=== PATIENT | male | born 1940 | race Caucasian/White ===

== ENCOUNTER 2016-09-06 15:57 | Inpatient (IN) ==
[2016-09-06 17:37] LABS: MANUAL DIFF NEEDED? NO
[2016-09-06 17:41] LABS: BASO% 0.3 % (0.0-0.8); EOS# 0.04 X1000 (0.0-0.7); EOS% 0.5 % (0.0-10.0); HEMATOCRIT 29.7 % (42.0-52.0); HEMOGLOBIN 9.8 g/dL (14.0-18.0); LYMPH# 1.74 X1000 (1.2-3.4); LYMPH% 23.5 % (20.5-51.1); MCH 29.8 PG (27-31); MCV 90.3 FL (81-99); MONO# 0.56 X1000 (0.11-0.59); MONO% 7.6 % (1.7-9.3); MPV 11.5 FL (7.4-10.4); NEUT% 68.1 % (42.2-75.2); PLT 202 X1000 (130-400); RBC 3.29 XMIL (4.7-6.1)
[2016-09-06 17:53] LABS: ALBUMIN 3.9 g/dL (3.5-5.0); CALCIUM 8.8 mg/dL (8.8-10.2); POTASSIUM 5.4 mmol/L (3.5-5.1); TOTAL BILIRUBIN 0.47 mg/dL (0.20-1.00); TOTAL PROTEIN 6.7 g/dL (6.3-8.3)
[2016-09-06 18:13] LABS: URINE SOURCE CLEAN CATCH
--- NOTE | 2016-09-06 18:25 | PROVIDER DOCUMENTATION ---
This chart was entered by Natalya Villagran Scribe, acting as scribe for Zachary Cordoba PA. HPI-Abdominal Pain/GI Problem - General Chief Complaint: Abdominal Pain Stated Complaint: abd pain Time Seen by Provider: 09/06/16 16:24 Source: patient Allergies/Adverse Reactions: Patient Allergies Allergy/AdvReac Type Severity Reaction Status Date / Time Iodinated Contrast Media - Allergy Severe RASH Verified 09/06/16 23:43 Oral and morphine Allergy ITCHING Verified 09/06/16 23:43 Penicillins Allergy RASH Verified 09/06/16 23:43 Home Medications: Home Medication List Medication Instructions Recorded Confirmed Last Taken Type Amiodarone [Cordarone] 100 mg PO QAM 03/01/14 09/06/16 09/05/16 History Aspirin 1 tab PO QAM 03/01/14 09/06/16 09/05/16 History PRAVAstatin [Pravachol] 20 mg PO QHS 03/01/14 09/06/16 09/05/16 History Dicyclomine HCl [Bentyl] 20 mg PO BID 12/22/14 09/06/16 09/05/16 History Metformin [Glucophage] 500 mg PO BID CC 12/06/15 09/06/16 09/05/16 History Warfarin [Coumadin] 2.5 mg PO QHS 12/06/15 09/06/16 09/05/16 History Ondansetron [Zuplenz] 8 mg PO Q8H 09/06/16 09/06/16 09/05/16 History Pantoprazole [Protonix] 40 mg PO DAILY 09/06/16 09/06/16 09/05/16 History Tamsulosin [Flomax] 0.4 mg PO DAILY 09/06/16 09/06/16 09/05/16 History - History of Present Illness-ABD Nature of Presenting Problems: Pt is 75 y/o M presents to the ED with abdominal pain. Pt states pain has been present since yesterday. Pt states N and D. Pt states bright red blood in D. Pt states weight loss and poor appetite. Pt states chills and denies F. Pt states weakness. Abdominal Pain Onset Location: reports: generalized abdomen Pain Radiation: reports: no radiation Quality of Pain: reports: sharp Severity in ED: reports: mild Onset/Duration: reports: 24 hours ago Timing: reports: still present, intermittent Activities at Onset: reports: light activity Exposure to sick contacts?: No Modifying Factors: improves with: nothing Associated Symptoms: reports: cough, diarrhea, fever/chills (chills), loss of appetite, nausea, weakness, other (weight loss). denies: anxiety, arm pain, back/neck pain, chest pain, constipation, diaphoresis, dizziness, EENT symptoms , fatigue, genitourinary problems, headaches, heartburn, joint pain, malaise, muscle aches, sinus congestion/drainage, rash, seizure, shortness of breath, sensory/motor loss, pain with inspiration, swelling/mass in abdomen, syncope, vomiting, trouble walking Last BM: this morning Dark Stools Present?: reports: none noticed Rectal Bleeding: reports: bright red blood on paper, blood mixed with stool Rectal Pain: reports: none Emesis Description: reports: none Bruising or Bleeding Gums?: No Similar Symptoms Previously?: Yes Recently seen or treated by another doctor?: No Review of Systems - Adult - REVIEW OF SYSTEMS - ADULT Constitutional: reports: chills, weight loss. denies: fever Eyes: denies: blurred vision, double vision Ears, Nose, Mouth & Throat: denies: ear pain, nose pain, throat pain Cardiovascular: denies: chest pain, heart murmur, irregular heart rate Respiratory: reports: cough. denies: shortness of breath, wheezing Gastrointestinal: reports: abdominal pain, diarrhea, nausea, poor appetite, rectal bleeding (bright red blood). denies: vomiting Genitourinary: denies: dysuria, hematuria, urinary retention Musculoskeletal: reports: muscle weakness. denies: bone pain, joint pain, neck pain Integumentary: denies: hives, itching, rash Neurological: denies: dizziness/vertigo, headache/migraines, numbness, seizure, syncope Psychiatric: reports: no symptoms reported Endocrine: reports: no symptoms reported Hematologic/Lymphatic: reports: no symptoms reported Allergic/Immunologic: reports: no symptoms reported All Other Systems: Reviewed and Negative Past History - Adult - PAST MEDICAL HISTORY-ADULT Review of Records: reports: Nursing Assessment Review, Medications Reviewed, Social history reviewed & non-contributory. Major Childhood Illnesses: reports: denies history Cardiovascular: reports: A-Fib, CAD, CHF, HTN, heart valve problem, hyperlipidemia, other (aortic valve) Respiratory: reports: asthma, COPD, sleep apnea Gastrointestinal: reports: cancer (colon), colitis, GERD, GI bleed Obstetrical/Gynecological: reports: denies history Genitourinary: reports: kidney disease Musculoskeletal: reports: denies history Neurological: reports: TIA Endocrine/Immune: reports: Diabetes Other Conditions: reports: denies history - PRIOR SURGERIES/PROCEDURES Surgical/Procedure History: reports: CABG, cholecystectomy, hernia repair, other (lumbar surgery; jaw surgery) - IMMUNIZATION STATUS Childhood Immunizations: See Nurse Assessment Flu Vaccine: See Nurse Assessment - FAMILY HISTORY Family History: CAD over 55 yo - SOCIAL HISTORY Smoking: quit greater than 1 year, cigarettes Substance Use: denies Living Situation: family Physical Exam-General - PHYSICAL EXAM-ADULT Initial Vital Signs Reviewed: Yes - CONSTITUTIONAL General Appearance: alert, no apparent distress - EYES Eyes: PERRL/EOMI, pink conjunctivae - HEAD, EARS, NOSE, MOUTH & THROAT HENMT: normocephalic/atraumatic, normal ENT inspection, other (dry mucous membranes) - NECK Neck: normal inspection - RESPIRATORY Respiratory: chest non-tender, lungs clear, normal breath sounds - CARDIOVASCULAR Cardiovascular: normal peripheral pulses, regular rate, rhythm - GASTROINTESTINAL (ABDOMEN) Abdominal Exam: normal bowel sounds, non tender, soft - LYMPHATIC Lymphatic: no adenopathy - MUSCULOSKELETAL Back Exam: normal inspection, no CVA tenderness, no vertebral tenderness Extremity: normal range of motion, non-tender, normal inspection - SKIN Integumentary: normal color, normal turgor - NEUROLOGIC Neurologic: grossly normal - PSYCHIATRIC Psych/Mental Status: normal mood/affect, oriented x 3 Progress - PLAN OF CARE/RESULTS Progress/Plan/Lab Results: Vital Signs - 8 hr 09/06/16 16:25 Temperature 98.2 F Pulse Rate 64 Respiratory Rate 16 Blood Pressure 137/64 O2 Sat by Pulse Oximetry 100 Laboratory Results - last 24 hr 09/06/16 09/06/16 09/06/16 16:50 16:50 18:05 WBC 7.39 RBC 3.29 L Hgb 9.8 L Hct 29.7 L MCV 90.3 MCH 29.8 MCHC 33.0 RDW Std Deviation 14.2 Plt Count 202 MPV 11.5 H Immature Gran % (Auto) 0.0 Neut % (Auto) 68.1 Lymph % (Auto) 23.5 [place] % (Auto) 7.6 Eos % (Auto) 0.5 Baso % (Auto) 0.3 Immature Gran # (Auto) 0.00 Neut # (Auto) 5.03 Lymph # (Auto) 1.74 [place] # (Auto) 0.56 Eos # (Auto) 0.04 Baso # (Auto) 0.02 Sodium 141 Potassium 5.4 H Chloride 104 Carbon Dioxide 20 L Anion Gap 17 BUN 48 H Creatinine 2.5 H Estimated GFR/1.73 m2 25 BUN/Creatinine Ratio 19 Glucose 122 H Calculated Osmolality 295 Calcium 8.8 Total Bilirubin 0.47 AST 21 ALT 15 Alkaline Phosphatase 92 Total Protein 6.7 Albumin 3.9 Globulin 2.8 Albumin/Globulin Ratio 1.4 Urine Source CLEAN CATCH Orders Category Date Time Status CHEST-2 VIEWS [RAD] Stat Exams 09/06/16 16:41 Taken CBC WITH DIFF [HEME] Stat Lab 09/06/16 16:50 Completed COMPREHENSIVE METABOLIC PANEL [CHEM] Stat Lab 09/06/16 16:50 Completed OCCULT BLOOD SCREENING [STOOL] Stat Lab 09/06/16 16:39 Uncollected TYPE & SCREEN [BBK] Stat Lab 09/06/16 16:39 Uncollected UA NIMS W/REFLEX CULT [URINALYSIS] Stat Lab 09/06/16 18:05 Results Result Diagrams: 09/09/16 06:50 09/09/16 06:50 - REASSESSMENT Reassessment #1 Time Reassessed: 18:24 (Pt had a BM in the room- liquid stool with blood. I observed that was bloody. Need a CT scan but pt creatinine is 2.5. ) Reassessment #2 Time Reassessed: 20:06 (Dr. Foster let Dr. Guerrero, hospitalist, know that pt is waiting scan, but will be consulted for admission. Discussed wtih Dr. Foster the hyperkalemia. Suggests not treating that at this time, but ok to start NS on pt. Waiting for CT Scan. ) Reassessment #3 Time Reassessed: 21:55 (Discussed with Dr. Foster. CT scan results are back. Will consult for admission. ) - CT/MRI 1 CT Study: Abdomen, Pelvis Impression: Abnormal (1. Small loculated pleural effusion on the left 2. Multiple distended loops of bowel with air-fluid levels, mainly in the upper abdomen. Worrisome for obstruction 3. Trace fluid layering in the pelvis) - CONSULTS/PCP/HOSPITALIST Notification #1 *Consult/PCP/Hospitalist*: Dr. Bryant, GI Time Discussed: 18:52 (Requested clarification on what scan to order for pt with his sxs but creatinine of 2.5. Recommends CT with oral contrast only, and recommends admission to hospital. ) #2 Consult: Dr. Guerrero, Hospitalist Time Discussed: 22:21 (Dr. Guerrero already saw the pt based on the previous call, he is already putting in orders for this patient. ) Consult Disposition: Admit Departure - Departure Date of Disposition Decision: 09/06/16 Time of Disposition Decision: 22:22 DIAGNOSIS: History of colon cancer GI bleed Qualifiers: GI bleed type/associated pathology: unspecified gastrointestinal hemorrhage type Qualified Code(s): K92.2 - Gastrointestinal hemorrhage, unspecified Bowel obstruction Qualifiers: Intestinal obstruction type: unspecified Qualified Code(s): K56.60 - Unspecified intestinal obstruction Disposition: ADMITTED INPATIENT 09 Certified Medical Emergency: Emergent Condition: Stable - Critical Care Note This patient required my direct & personal management of CC.: No Attestation - Physician/ YASMIN Attestation Patient care was provided by Advanced Practice Provider:: Yes Advanced Practice Provider:: Zachary Cordoba Advanced Practice Provider documentation review:: The Mid-level provider documentation, treatment plan and medical decision making was reviewed by the physician who agrees with all treatment and medical decision making by the MLP. This chart was documented by the indicated scribe, (Natalya Villagran Scribe) and accurately reflects the services I performed and decisions made by , Zachary Cordoba PA, as attested by the provider's signature.
[2016-09-06 18:50] LABS: BILIRUBIN URINE NEGATIVE (NEGATIVE); BLOOD URINE NEGATIVE (NEGATIVE); COLOR YELLOW; GLUCOSE URINE NEGATIVE (NEGATIVE); LEUKOCYTES URINE SMALL (NEGATIVE); NITRITE URINE NEGATIVE (NEGATIVE); PROTEIN URINE 30 mg/dL (NEGATIVE); SP GRAVITY URINE 1.019; TURBIDITY URINE CLEAR (CLEAR); UROBILINOGEN URINE NORMAL (NORMAL)
[2016-09-06 18:52] LABS: URINE MICRO REVIEW NEEDED? YES
[2016-09-06 19:00] LABS: UR EPITHELIAL CELLS <10 /HPF (<10); URINE BACTERIA NEGATIVE /HPF; URINE CULTURE NEEDED? YES; URINE RBC <10 /HPF (<10); URINE WBC <10 /HPF (<10)
[2016-09-06] MEDS ORDERED: NS 1,000 ML IV ONE (20:05)
[2016-09-06] MEDS ORDERED: HUMULIN R IV ONE (21:44)
[2016-09-06] MEDS ORDERED: D50W SYRINGE IV ONE (21:44)
[2016-09-06 22:11] LABS: INR 2.65; PROTIME 29.6 Seconds (9.2-11.7)
[2016-09-06] MEDS: NS 1,000 ML IV SCH (23:58)
[2016-09-06] MEDS ORDERED: ZOFRAN IV PRN (23:58)
[2016-09-07] MEDS ORDERED: MORPHINE IV PRN (05:10)
[2016-09-07] MEDS: PEPCID IV SCH ×2 (05:50→14:43)
--- NOTE | 2016-09-07 06:04 | HISTORY AND PHYSICAL ---
PRIMARY CARE PROVIDER: Dr. Nawaf Kaye. COSMETIC SALES CONSULTANT: Dr. Sanchez Ross. CHIEF COMPLAINT: Abdominal pain, with blood in stool. HISTORY OF PRESENT ILLNESS: This is a 75-year-old male who was last admitted to our service on 02/03/2016 for dark tarry stools. He has a history of colon cancer, with subsequent colectomy by Dr. Mac, I believe roughly 6 years ago. The patient has a porcine aortic valve replacement that he received at [place]. He also had coronary artery disease, with coronary artery bypass grafting, COPD, hypertension, atrial fibrillation with chronic Coumadin anticoagulation. At any rate, yesterday the patient started having cramping abdominal pain. Today, he started having stools with bright red blood that became more and more liquid, and he had more and more cramping in his abdomen. He tried taking Gas-X and antacids, which did not help. He also noted that he has a decreased appetite. Over the last 6 months, he has had weight loss from 234, down to 164 pounds. He had associated symptoms, such as dizziness, weakness, fever, chills , some cough over the last several days, with clear sputum. A CT of the abdomen was obtained, as well as a chest x- ray. The chest x-ray showed cardiomegaly, no infiltration. The CT of the abdomen showed multiple distended loops of bowel mainly in the upper abdomen, which was worrisome for obstruction. The patient will be admitted to the medical floor for further evaluation and treatment of bowel obstruction versus ileus, as well as lower gastrointestinal bleeding. PAST MEDICAL HISTORY: 1. Coronary artery disease, status post CABG. 2. Colon cancer, status post colectomy. 3. Diabetes mellitus type 2. 4. COPD. 5. Hypertension. 6. Hyperlipidemia. 7. Stage 4 chronic kidney disease, followed by Dr. Marquez. PAST SURGICAL HISTORY: 1. Colon resection secondary to colon cancer. 2. CABG. 3. Porcine aortic valve replacement done at [place]. 4. Back and neck surgery. 5. Cataract surgery. 6. Hernia repair. 7. Laparoscopic cholecystectomy SOCIAL HISTORY: Lives at home with his . He is a former smoker. Denies alcohol or illicit drug use or abuse. ALLERGIES: Penicillin, morphine, and IV contrast. HOME MEDICATIONS: The list of home medications has not been reconciled. Order will be placed for nursing to reconcile home medications. The patient does take Coumadin 1.25 mg p.o. at bedtime. It is the only verified home medication, as well as, amiodarone 100 mg p.o. daily, and I believe metoprolol 12.5 mg p.o. b.i.d. REVIEW OF SYSTEMS: A 14-point review of systems conducted with the patient. Pertinent positives listed above in the HPI. All other systems were reviewed and found to be negative. PHYSICAL EXAMINATION: VITAL SIGNS: Temperature 98.2 degrees, pulse 73, respirations 18, blood pressure 154/76, oxygen saturation 100% on room air. GENERAL: A pleasant 75-year-old male, was noted to be pale, lying in the ER stretcher. Answers all questions appropriately. at bedside is very supportive. HEENT: Head is atraumatic, normocephalic. Pupils are equal, round, reactive to light. Extraocular eye movement intact. Sclerae anicteric. Conjunctivae is pale. Oral mucosa is dry. NECK: Supple. No JVD. No thyromegaly. Trachea is midline. CARDIAC: S1-S2 appreciated. No murmurs, gallops, or rubs. Regular rhythm. LUNGS: Decreased bilaterally, but clear to auscultation. No rhonchi, wheezes, or rales. ABDOMEN: Soft, nondistended. Diffusely tender, mostly tender in the epigastric area. Previous scarring for surgical incisions noted. No rebound tenderness. No guarding. Bowel sounds are present, hyperactive. EXTREMITIES: No clubbing, cyanosis, or edema. 2+ pedal pulses. NEUROLOGICAL: Alert and oriented x3. Cranial nerves 2-12 appear to be grossly intact. DIAGNOSTIC DATA: CT of the abdomen showed multiple distended loops of bowel, mainly in the upper abdomen, worrisome for obstruction. Chest x-ray showed cardiomegaly. LABORATORY DATA: WBC 7.39, hemoglobin 9.8, hematocrit 29.7, platelet count 202, 000. PT 29.6, INR 2.65, PTT 43.1. Sodium 141, potassium 5.4, chloride 104, carbon dioxide 20, BUN 48, creatinine 2.5, glucose 122. Urine unremarkable. ASSESSMENT AND PLAN: 1. Lower gastrointestinal bleeding. The patient has noted bright red blood in his stool. His hemoglobin and hematocrit were noted to be low at 9.8 and 29.7. This is around the patient's baseline, but related to his extensive cardiac history. We will go ahead and transfuse 1 unit of packed red blood cells. We will consult Dr. Ross to see the patient in a.m. 2. Probable bowel obstruction per CT scan. Will have patient NPO, except for medications with sips of water. The patient was not noted to be overly distended. He did have mild nausea. We will order Zofran. I will not place an NG tube at this time. Will give gentle fluid hydration, and hope that this resolves with supportive treatment. 3. Atrial fibrillation. Continue amiodarone and beta susana. Apparently, the patient had recent medication changes by Dr. Hatfield. We will consult Dr. Hatfield for help in this matter, as we do not know the correct medications. Will hold his Coumadin at this time, as he is having GI bleeding. His INR is noted to be 2.65. 4. Aortic valve replacement. As noted, Dr. Hatfield will be consulted. We are aware. Further recommendations per patient clinical course. Dictated by JAIRON Hannah for Heidi Barahona MD Seen,examined and discussed case with RAIL[employer]AY STATION MANAGER. cc: JAIRON Hannah MD Manish Arora, MD Stephen A. Branning, MD [facility] STATE HOSPITALBozena
--- NOTE | 2016-09-07 06:09 | EKG Report ---
Test Performed on : 09/07/2016 05:35:44 AM Test Reason : am eval Blood Pressure : / mmHG Vent. Rate : 066 BPM Atrial Rate : 066 BPM P-R Int : 392 ms QRS Dur : 154 ms QT Int : 490 ms P-R-T Axes : 000 073 119 degrees QTc Int : 513 ms Sinus rhythm. with 1st degree AV block. Left bundle branch block Abnormal ECG When compared with ECG of 06-SEP-2016 23:07, (Unconfirmed) Sinus rhythm. has replaced Wide QRS rhythm. Confirmed by Jagdeep VENTURA, Rhys Garcia ([id number]) on 09/07/2016 2:17:11 PM
--- NOTE | 2016-09-07 07:38 | Diag Imaging Result Doc PS360 ---
CHEST-2 VIEWS - 09/06/2016 INDICATION: cough, weight loss, hx cancer TECHNIQUE: COMPARISON: 05/18/2016 FINDINGS: Stable aortic valve replacement. Stable moderate cardiomegaly. Pulmonary vascularity remains normal. Stable small left basilar pleural effusion. Stable loop of colon under the right hemidiaphragm. IMPRESSION: Small left pleural effusion. No change from prior. Electronically signed by Angus Driscoll 09/07/2016 7:35 AM
--- NOTE | 2016-09-07 07:38 | Diag Imaging Result Doc PS360 ---
EXAM: ABDOMEN/PELVIS W/O CONTRAST HISTORY: GI bleed, hx colon cancer, creatinine 2.5 TECHNIQUE: CT urogram without contrast COMMENT: Compared to the previous study of 12/12/2015 there appears slightly less atelectasis in the left base. The pleural effusion which was previously present on the right has resolved. There is still a small effusion on the left. There is gas and fluid throughout much of the distal bowel. By history there has been resection of all or part of the colon. The small bowel is generally less distended proximally and the stomach is not distended. There is a small hiatal hernia. There is a cystic-appearing structure with some adjacent calcifications in the head of the pancreas which is slightly larger than on the previous study at which time it measured less than 2.3 cm, now measuring over 3 cm. There is no evidence of nephrolithiasis or hydronephrosis. There is been cholecystectomy. There is a small amount of ascites in the rectovesical pouch and on the right side of the liver in the paracolic gutter and right subphrenic space. Slight dilatation of the distal abdominal aorta is present with a maximum AP dimension of 2.6 cm. This is not changed significantly since the previous study. There are severe hypertrophic changes in the lumbar spine. IMPRESSION: 1. The absence of contrast limits the sensitivity of the study, however, there does not appear to be a physical obstruction given the fluid and gas in the rectum. Possibility of enteritis cannot be excluded. 2. Cystic lesion in the pancreatic head which has increased in size slightly since 12/12/2015. 3. Minimal ascites. 4. Chronic left pleural effusion. Electronically signed by Bulmaro Moran 09/07/2016 7:36 AM
[2016-09-07 08:34] LABS: MANUAL DIFF NEEDED? NO
[2016-09-07 08:36] LABS: BASO% 0.5 % (0.0-0.8); EOS% 1.7 % (0.0-10.0); HEMATOCRIT 27.7 % (42.0-52.0); HEMOGLOBIN 9.1 g/dL (14.0-18.0); LYMPH# 1.65 X1000 (1.2-3.4); LYMPH% 28.8 % (20.5-51.1); MCH 29.5 PG (27-31); MCHC 32.9 g/dL (33-37); MCV 89.9 FL (81-99); MONO# 0.48 X1000 (0.11-0.59); MONO% 8.4 % (1.7-9.3); MPV 10.5 FL (7.4-10.4); NEUT% 60.6 % (42.2-75.2); PLT 169 X1000 (130-400); RBC 3.08 XMIL (4.7-6.1)
[2016-09-07 09:02] LABS: CALCIUM 7.8 mg/dL (8.8-10.2); MAGNESIUM 1.5 mg/dL (1.5-2.7); POTASSIUM 4.5 mmol/L (3.5-5.1)
[2016-09-07] MEDS: NS 1,000 ML IV SCH (09:16)
[2016-09-07] MEDS: CORDARONE PO SCH (09:33)
[2016-09-07] MEDS: TOPROL XL PO SCH ×2 (09:34→21:34)
[2016-09-07 09:48] LABS: INR 2.46; PROTIME 27.3 Seconds (9.2-11.7)
--- NOTE | 2016-09-07 12:38 | PROGRESS NOTE ---
DATE: 09/07/2016 SUBJECTIVE: This patient states that he is feeling better. The last time that he had a bowel movement was yesterday and he saw blood in it. He denies any nausea, vomiting. No diarrhea. No constipation. No chest pain. No shortness of breath. Dr. Ross has been consulted. I will put this patient on a clear liquid diet. I do believe that this patient should be prepared if he is going for a colonoscopy. He is stable. We will monitor. OBJECTIVE: Vital Signs: Temperature 97.7 degrees, pulse 60, respiratory rate 18, blood pressure 147/65, oxygen saturation 100% on room air. HEENT: Head normocephalic. No trauma. PERRLA. Neck: Supple. No JVD. No masses. Central trachea. Chest: Clear to auscultation. No wheezing. No rales. Abdomen: Soft. There is a midline scar that is old. Nontender to palpation. Extremities: No edema. No clubbing. No cyanosis. Neurological: The patient is alert and oriented x3. No focal neurological deficits. LABORATORY: WBC 5.7, hemoglobin 9.1, hematocrit 27.7, platelet 169,000. PTT 27.3, INR 2.46. Sodium 144, potassium 4.5, chloride 110, BUN 41, creatinine 2.1, glucose 77, calcium 7.8, magnesium 1.5. TSH 1.8. ASSESSMENT AND PLAN: 1. Lower gastrointestinal bleed. This patient has noted bright red blood in his stool. He is on warfarin. Hemoglobin and hematocrit have been stable. He already received 1 unit of PRBC here in the emergency department. Dr. Ross has been consulted. Pending recommendations. 2. Probable bowel obstruction per CT scan. I do not think this patient has an obstruction. He has been passing gas. I will put this patient on a clear liquid diet. His abdomen is soft and it is nondistended. 3. Atrial fibrillation. Continue with amiodarone and beta susana. His INR is therapeutic. In case of having a colonoscopy, probably we can stop the warfarin, give him vitamin K, and put this patient on heparin drip, but I will wait for gastroenterology's recommendations to see if they are going to do that tomorrow. 4. Aortic valve replacement. Dr. Hatfield has been consulted; pending recommendations. 5. History of colon cancer status post colectomy. Aware. I do not think this patient has a bowel obstruction. His abdomen is soft and it is not distended. Positive bowel sounds. 6. Hypertension, stable. Continue with the same management. 7. Hyperlipidemia. As soon as I can I will put this patient back on pravastatin. 8. Type 2 diabetes. Continue with the same management. Blood sugar has been stable. cc: Nick Morel MD
--- NOTE | 2016-09-07 15:20 | CONSULTATION ---
DATE OF CONSULTATION: 09/07/2016 REASON FOR CONSULTATION: Abdominal pain and blood in the stool. HISTORY OF PRESENT ILLNESS: 75-year-old gentleman who has a history of colon cancer long time ago presents with increasing abdominal pain and abdominal distention and cramping and he started having some bloody stools associated with mucus and more recently, the blood has cleared. A CT scan was obtained which was essentially negative other than distended loops of bowel. PAST MEDICAL HISTORY: 1. Coronary artery disease status post CABG. 2. Colon cancer status post colectomy. 3. Diabetes mellitus type 2. 4. COPD. 5. Hypertension. 6. Hyperlipidemia. 7. Stage 4 kidney disease. PAST SURGICAL: Colon resection, CABG porcine aortic valve replacement, back and neck surgery, cataract surgery, hernia repair, lap cholecystectomy. SOCIAL HISTORY: Lives with his at home. He used to smoke, but does not now. Denies alcohol or drugs. DRUG ALLERGIES: Allergic to penicillin, morphine and contrast. HOME MEDICATION: The patient is on Coumadin and amiodarone 100 mg daily and metoprolol 12.5 p.o. b.i.d. REVIEW OF SYSTEMS: Negative other than HPI. PHYSICAL EXAMINATION: Reveals this pleasant gentleman. At the time of examination there is not any distress.Vital Signs: Temp 98 degrees, pulse 73, respirations 18, blood pressure 150/76, O2 saturation 100%. General: A 75-year-old gentleman pale, in no acute distress. HEENT: There is no scleral icterus. Conjunctival pallor present. Neck: Supple. Trachea midline. Heart: Normal first and second heart sounds. Patient has a click. Lungs: Clear. Extremities: No clubbing, cyanosis. There is trace edema. Neurologically: Intact. LABORATORY DATA: White count 7.39, hemoglobin 9.8 and hematocrit 29.7. INR 2.65. He is on Coumadin. Creatinine 2.5. IMPRESSION: 1. Lower gastrointestinal bleed. Rule out enterocolitis. He also has a creatinine of 2.5, hematocrit may be his baseline. 2. Possible small-bowel obstruction unlikely. Patient is having diarrhea. He could have enteral colitis. 3. Atrial fibrillation and aortic valve replacement on Coumadin. 4. Dr. Hatfield is consulted for aortic valve replacement. We will see how he does clinically and I will follow the hematocrit. Consider endoscopy depending on his clinical course. He needs most likely, antibiotic prophylaxis because of the porcine valve and he is also on Coumadin. We will decide that tomorrow. cc: Robert Johnson MD
--- NOTE | 2016-09-07 20:30 | CONSULTATION ---
DATE OF CONSULTATION: 09/07/2016 IMPRESSION: 1. Chest pain, predominantly atypical for myocardial ischemia, likely noncardiac. 2. Upper abdominal discomfort and recent bloody diarrhea. 3. Acute bronchitis. 4. Atherosclerotic coronary artery disease. Patient is status post coronary bypass grafting in 2006. 5. Valvular heart disease. Patient is status post aortic valve replacement with bioprosthesis for aortic stenosis in 2011. 6. Paroxysmal atrial fibrillation. 7. Hypertension. 8. Type 2 diabetes mellitus. 9. Stage 4 chronic kidney disease. 10. Colon cancer. Patient is status post colectomy. RECOMMENDATIONS: 1. Telemetry monitoring. 2. Repeat cardiac enzymes. 3. GI evaluation. 4. Continue amiodarone and beta susana. Hold anticoagulation in light of recent symptoms of GI blood loss. HISTORY: This 75-year-old white male with past history of atherosclerotic coronary disease, previous coronary bypass graft in 2006, aortic valve replacement with bioprosthesis for aortic stenosis in 2011, hypertension, paroxysmal atrial fibrillation, type 2 diabetes mellitus, stage 4 chronic kidney disease and previous colon resection for colon cancer was admitted for further evaluation of recent symptoms of GI blood loss as well as atypical chest discomfort. He is suspected of having a possible bowel obstruction. He relates that for the past 2 weeks, he has had problems with cough and wheezing. A clear sputum production. He was not aware of any fever. He was treated with a course of oral antibiotics for about 10 days. Antibiotic therapy ended about 3 or 4 days ago. Since then, his cough has worsened and reemerged and he has had production of yellow-green sputum. Again, he is still not aware of any fever. He started having pain in the upper abdomen and bilateral costal margins. Discomfort intensified. Today he had bowel movement and had bloody diarrhea. He was subsequently brought to the hospital by ambulance and was admitted for further workup. PAST MEDICAL HISTORY: 1. Atherosclerotic coronary disease with previous coronary bypass grafting in 2006. 2. Aortic stenosis. Patient is status post aortic valve replacement with bioprosthesis in 2011. Bypass graft was patent at that time. 3. Hypertension. 4. Paroxysmal atrial fibrillation suppressed with amiodarone. 5. Type 2 diabetes mellitus. 6. Stage 4 chronic kidney disease. 7. Chronic obstructive pulmonary disease. 8. Hypertension. 9. Hyperlipidemia. PAST SURGICAL HISTORY: Colon resection for colon cancer, coronary bypass grafting, aortic valve replacement with bioprosthesis in 2012, unspecified back surgery, unspecified neck surgery, cataract surgery, hernia repair, and laparoscopic cholecystectomy. ALLERGIES: Allergic or intolerant to penicillin, morphine and intravenous contrast. MEDICATIONS PRIOR TO ADMISSION: As listed. He has been on low-dose amiodarone and anticoagulation with warfarin. He has also been on low-dose metoprolol. He has recently started on amlodipine 5 mg daily because of elevated blood pressure. SOCIAL HISTORY: He lives at home with his . His continues to work in the [employer]. He is a former smoker. Does not use alcohol. FAMILY HISTORY: Negative for premature coronary disease. REVIEW OF SYSTEMS: Pulmonary: Noteworthy for cough productive of yellow-green sputum as well as wheezing. Gastrointestinal: Noteworthy for recent upper abdominal pain as well as bloody diarrhea. Constitutional: Negative for fever. Remainder of review of systems negative/noncontributory with 14 total systems reviewed. PHYSICAL EXAMINATION: General: This is a pleasant, elderly white male, in no distress. Vital signs: Blood pressure 150/75, heart rate 73 and regular. Oxygen saturation 100% on room air. HEENT: Extraocular movements intact. Mucous membranes moist. Neck: Supple without jugular venous distention. There are no carotid bruits. Chest: Clear to auscultation. There are no carotid bruits. Auscultation of chest reveals scattered expiratory wheezes and a few rhonchi. Cardiac: Reveals a regular rate and rhythm without appreciable murmur or gallop. Abdomen: Soft, bowel sounds audible. Extremities: Without edema. Neurologic: Reveals him to be alert and oriented. Memory is intermittently challenged. Speech is fluent. Moves all 4 extremities equally well. Skin: Warm and dry. Psychiatric: Reveals mood to be appropriate. IMAGING STUDIES: Electrocardiogram demonstrates sinus rhythm with 1st degree AV block and left bundle branch block. cc: Michel Hatfield MD
[2016-09-08] MEDS: SODIUM CHLORIDE 0.9% INJ SCH (00:52)
[2016-09-08] MEDS: PEPCID IV SCH ×2 (00:52→11:43)
[2016-09-08 07:01] LABS: MANUAL DIFF NEEDED? NO
[2016-09-08 07:23] LABS: BASO% 0.2 % (0.0-0.8); EOS# 0.15 X1000 (0.0-0.7); EOS% 2.9 % (0.0-10.0); HEMATOCRIT 25.9 % (42.0-52.0); HEMOGLOBIN 8.3 g/dL (14.0-18.0); LYMPH# 1.17 X1000 (1.2-3.4); LYMPH% 22.4 % (20.5-51.1); MCH 29.6 PG (27-31); MCV 92.5 FL (81-99); MONO# 0.56 X1000 (0.11-0.59); MONO% 10.7 % (1.7-9.3); NEUT% 63.8 % (42.2-75.2); PLT 174 X1000 (130-400)
[2016-09-08 07:39] LABS: CALCIUM 7.4 mg/dL (8.8-10.2); POTASSIUM 3.4 mmol/L (3.5-5.1)
[2016-09-08 08:08] LABS: INR 2.57; PROTIME 28.7 Seconds (9.2-11.7)
[2016-09-08] MEDS: TOPROL XL PO SCH ×2 (09:21→22:53)
[2016-09-08] MEDS: NS 1,000 ML IV SCH ×4 (09:21→22:55)
[2016-09-08] MEDS: CORDARONE PO SCH (09:21)
[2016-09-08] MEDS: FLAGYL 500 MG/NS 500 MG/100 ML IVPB IV SCH ×3 (09:22→22:52)
[2016-09-08] MEDS: LEVAQUIN 750 MG/D5W 750 MG/150 ML IVPB IV SCH (12:57)
[2016-09-08] MEDS ORDERED: GOLYTELY PO ONE (14:00)
[2016-09-08] MEDS ORDERED: KLOR-CON PO ONE (14:04)
--- NOTE | 2016-09-08 14:22 | PROGRESS NOTE ---
DATE: 09/08/2016 CARDIOLOGY FOLLOWUP NOTE: SUBJECTIVE: Patient continues with some cough productive of green sputum. He has had some further diarrhea but has not noted passing any blood. He denies chest discomfort. OBJECTIVE: Vital Signs: Blood pressure 162/62, heart rate 59 and regular. There is no significant jugular venous distention. Chest: Auscultation of chest reveals scattered expiratory rhonchi. Cardiac Exam: Reveals a regular rate and rhythm without appreciable murmur or gallop. There is no evidence of peripheral edema. IMPRESSION: 1. Recent atypical chest discomfort coupled with productive cough of green sputum. Suspect acute bronchitis. 2. Recent bloody diarrhea. 3. Atherosclerotic coronary artery disease. History of previous coronary artery bypass grafting. 4. Status post aortic valve replacement with bioprosthesis for aortic stenosis in 2011. 5. Paroxysmal atrial fibrillation. Patient continues in sinus rhythm on low-dose amiodarone. 6. Hypertension. 7. Type 2 diabetes mellitus. 8. Chronic kidney disease stage 4. RECOMMENDATIONS: 1. Continue amiodarone and low-dose beta susana. 2. Hold anticoagulation pending further gastrointestinal evaluation. 3. Treat for respiratory infectious process such as acute bronchitis as you are doing. We will defer to primary team. cc: Michel Hatfield MD
--- NOTE | 2016-09-08 14:56 | PROGRESS NOTE ---
DATE: 09/08/2016 SUBJECTIVE: This patient states that he is feeling better. He had a bowel movement yesterday night and he did not see blood. Vital signs are stable. The hemoglobin dropped from 9.120 to 8.3 and the INR is still subtherapeutic. OBJECTIVE: Vital Signs: Temperature 97.7 degrees, pulse 59, respiratory rate 13, blood pressure 162/62, oxygen saturation 100% on room air. HEENT: Head normocephalic. No trauma. PERRLA. Neck: Supple. No JVD. No masses. Central trachea. Chest: Clear to auscultation. No wheezing. No rales. Abdomen: Soft, nontender, nondistended. No hepatosplenomegaly. Extremities: No edema. No clubbing. No cyanosis. Neurological Examination: The patient is alert and oriented x3. No focal deficits. LABORATORY: WBC 5.2, hemoglobin 8.3, hematocrit 25.9, platelet 174,000. PT 28.7, INR 2.5, sodium 143, potassium 3.4, chloride 110, bicarbonate 20. BUN 25, creatinine 1.5, glucose 84, calcium 7.4. ASSESSMENT AND PLAN: 1. Lower gastrointestinal bleed. Probably this patient has colitis. I put this patient on metronidazole and levofloxacin. This patient feels better. He already received 1 unit of PRBC. Warfarin has been held. The hemoglobin and hematocrit decreased a little bit. We will continue to monitor. 2. Atrial fibrillation. Continue with amiodarone and beta susana. INR is therapeutic, but we stopped the warfarin in light of his gastrointestinal bleed. 3. Aortic valve replacement. Dr. Castillo is following this patient. We will continue to follow his recommendations. 4. History of colon cancer, status post colectomy, aware. 5. Hypertension, stable. Continue with the same management. He has been around 130s and 140s and just one episode of 160. 6. Hyperlipidemia. I will put this patient on pravastatin, which is his home medication. 7. Type 2 diabetes. Continue with the same management. Blood sugar has been stable. cc: Nick Morel MD
[2016-09-08] MEDS: ICAR-C PO SCH ×2 (15:26→22:53)
[2016-09-08] MEDS: CENTRUM SILVER PO SCH (15:26)
--- NOTE | 2016-09-08 16:30 | PROGRESS NOTE ---
DATE: 09/08/2016 SUBJECTIVE: The patient is resting in bed. He complains of diffuse oozing from the previous IV site. He also has bruises over the both upper extremities from Coumadin. He was admitted on 09/06 with rectal bleeding which he describes as bright red blood. His last colonoscopy was done within a year. He has received 1 unit of blood transfusion. Today so far he had no bowel movements and no bleeding. He has a history of atrial fibrillation and aortic valve replacement and is on chronic Coumadin treatment. He denies any fevers, rigors, chills, nausea, vomiting, or vomiting blood. OBJECTIVE: Vital signs: Temperature 97.7, pulse rate of 59, respiratory rate 13 ,blood pressure 162/60, saturating 100% room air. Body weight of 152 pounds 11.2 ounces. General: He is thinly built, lying in bed, in no acute distress. HEENT: Pale conjunctivae. No icterus. Neck: Supple. Abdomen: Soft, nontender, nondistended. Bowel sounds. No guarding or rebound. Extremities: No cyanosis, clubbing. Bilateral upper extremities showing bruising and oozing from a prior IV site. Neurologic: Alert and awake. LABS: His hemoglobin and hematocrit is 8.3, 25.9, white count of 5.2, platelet count 174,000, MCV of 92.5. INR of 2.5, PT of 28.7. Sodium 143, potassium 3.4, chloride 110, bicarb 20, anion gap of 13, BUN of 25, creatinine 1.5, glucose of 84, calcium is 7.4. Urine culture showing yeast. IMPRESSION AND PLAN: 1. Lower GI bleed. Questionable diverticular bleeding versus enterocolitis. Will continue on Levaquin and Flagyl. Will await the results of stool studies. We will watch for any further bleeding and if he bleeds we will repeat hematocrit and type and cross, transfuse hematocrit more than 25%. Schedule for EGD and colonoscopy as patient has anemia requiring blood transfusion. 2. Atrial fibrillation with RVR and aortic valve replacement. Being followed by Cardiology team. We are to closely watch his blood counts and INR levels. Will need to reverse INR <1.5 for EGD and colon tomorrow. 3. History of colon cancer status post colectomy. He has subtotal colectomy and has some chronic issues with constipation and slow small bowel motility. 4. I will continue on low-dose MiraLAX once daily. 5. Type 2 diabetes, hypertension, hyperlipidemia, per the primary care team. 6. Gastrointestinal prophylaxis with IV Pepcid twice daily. 7. He will continue on clear liquid diet for now. 8. Further recommendations to follow.Called and discussed with . cc: MD Nick Méndez MD Stephen A. Branning, MD MTDD
[2016-09-08] MEDS ORDERED: VITAMIN K 10 MG in NS 50 ML IV ONE (17:30)
[2016-09-08] MEDS: PRAVACHOL PO SCH (22:53)
[2016-09-09] MEDS: PEPCID IV SCH ×3 (00:37→23:48)
[2016-09-09] MEDS: SODIUM CHLORIDE 0.9% INJ SCH ×2 (00:38→23:48)
[2016-09-09] MEDS: NS 1,000 ML IV SCH ×2 (04:42→23:49)
[2016-09-09] MEDS: FLAGYL 500 MG/NS 500 MG/100 ML IVPB IV SCH ×4 (04:45→20:34)
[2016-09-09 07:17] LABS: MANUAL DIFF NEEDED? NO
[2016-09-09 07:22] LABS: BASO% 0.3 % (0.0-0.8); EOS# 0.11 X1000 (0.0-0.7); EOS% 1.9 % (0.0-10.0); HEMATOCRIT 29.2 % (42.0-52.0); HEMOGLOBIN 9.6 g/dL (14.0-18.0); LYMPH# 1.26 X1000 (1.2-3.4); LYMPH% 21.5 % (20.5-51.1); MCH 29.4 PG (27-31); MCHC 32.9 g/dL (33-37); MCV 89.6 FL (81-99); MONO% 10.2 % (1.7-9.3); MPV 10.4 FL (7.4-10.4); NEUT% 66.1 % (42.2-75.2); PLT 190 X1000 (130-400); RBC 3.26 XMIL (4.7-6.1)
[2016-09-09 07:32] LABS: POTASSIUM 3.5 mmol/L (3.5-5.1)
[2016-09-09 07:34] LABS: INR 1.59; PROTIME 17.2 Seconds (9.2-11.7)
[2016-09-09] MEDS ORDERED: DIPRIVAN 1% ONE ×2 (09:29→10:09)
[2016-09-09] MEDS ORDERED: ROBINUL ONE (09:30)
[2016-09-09] MEDS ORDERED: XYLOCAINE-MPF 2% ONE (09:30)
[2016-09-09] MEDS ORDERED: FENTANYL ONE (09:30)
[2016-09-09] MEDS ORDERED: EPINEPHRINE SYRINGE ONE (10:10)
--- NOTE | 2016-09-09 12:57 | OPERATIVE NOTE ---
PROCEDURE DATE: 09/09/2016 ATTENDING PHYSICIAN: Nick Morel MD PRIMARY CARE DOCTOR: Nawaf Kaye MD TITLE OF PROCEDURE: 1. Esophagogastroduodenoscopy with hemostasis. 2. Colonoscopy with snare polypectomy of rectal polyp and decompression of small bowel. PREOPERATIVE DIAGNOSES: 1. Rectal bleeding. Admitted with anemia. Required 1 unit of blood transfusion. 2. History of atrial fibrillation, on Coumadin. 3. History of aortic valve replacement, on Coumadin. 4. History of diffuse bruising and bleeding from skin in the upper extremities. 5. Required 1 unit of blood transfusion. 6. History of colon cancer status post subtotal colectomy many years ago by Dr. Mac, complicated with ?small bowel inertia and causing small bowel ileus (chronically dilated small bowel). 7. Intermittent abdominal pain and distention is likely because of small bowel ileus. 8. Reflux disease. POSTOPERATIVE DIAGNOSES: 1. Normal esophagus entirely. 2. Z-line was at 45 cm. 3. Evidence of hiatal hernia, sliding type, 4-5 cm. 4. Erosive gastritis in stomach and body, antrum is normal, fundus, cardia, incisura other than hiatal hernia. 5. Erosive duodenitis, duodenal bulb. 6. 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 It was very hard to get to that spot. We put epinephrine 2 mL in 2 different quadrants, but we could not find a good site to burn it with black wire. 7. Distended small bowel up to 110 cm from the anus. This was filled with air and fluid. This was likely because of small bowel ileus from prior colon surgery? nerve injury or something like that or scar tissue. This was decompressed. 8. Polyp found in the rectum 15 cm which was 1 cm to 1.2 cm. This was removed with snare cautery polypectomy completely. Internal hemorrhoid. ESTIMATED BLOOD LOSS: None. COMPLICATIONS: None. ANESTHESIA: Monitored anesthesia care. SPECIMENS: Rectal polyp sent to Pathology. OPERATION IN DETAIL: After informed consent, the patient explained the risks, benefits, indications, alternatives, the patient was prepared for EGD and colonoscopy. The patient was brought to the OR. He was turned to the left lateral position and a bite block was placed in patient's mouth. After adequate monitored anesthesia care, upper endoscope was introduced through the oral vestibule, and advanced all the way to the 3rd portion of duodenum. The esophagus was normal throughout entire length. Z-line was at 45 cm. There was evidence of sliding hiatal hernia 4-5 cm. No evidence of any ulcers or erosions. The stomach showed evidence of erythema, erosions, and mild erosive gastritis. Hiatal hernia was normal. The duodenitis was noted duodenal bulb with erosions, erythema, friability. The third portion of duodenum showed evidence of AVM measuring 5-8 mm at about 9 o'clock position. This was hiding behind a fold. We were unable to put epinephrine successfully. We were not able to find a good angle to burn it with a heater probe. I think he will benefit from Argon plasma coagulation at [facility] with a site probe in order to have effective hemostasis. It was not bleeding before or after putting epinephrine. Air was aspirated, the scope withdrawn. The patient was then turned around. Rectal examination was performed and found to be normal with no masses felt. The colonoscope was introduced through the anal orifice and advanced to 100 cm from the anal verge. We saw the anastomosis at about 20 cm from previous subtotal colectomy. There was evidence of a polyp in the rectum at 15 cm. This was 1-1.2 cm. This was removed using snare cautery polypectomy. There was evidence of internal hemorrhoids, grade 2 on retroflexion. The small intestine past the anastomosis was diffusely distended, filled with air and fluid from the recent GoLYTELY. We went up to 110 cm. We suctioned out and decompressed his abdomen and it became pretty soft after the procedure and the air was aspirated and scope was withdrawn. The patient tolerated the procedure well and is currently monitored in the OR in stable condition. I discussed the findings with the patient and his and all questions answered. After waking up, the patient abdomen felt soft and he was feeling better. RECOMMENDATIONS: 1. The patient will be on Prilosec 40 mg daily for next 3 months and then weaned down to Zantac 150 mg twice daily. 2. Patient will be on Carafate 1 g every 6 hours for 4 weeks. 3. 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 4. The patient will follow gastroesophageal reflux life changes and avoid excessive tea, coffee, soda, tomatoes, onions, spicy foods and take small frequent meals. 5. Patient will avoid any nonsteroidal antiinflammatory drugs. Once we start him on Coumadin, we will try to achieve the INR to the lowest limit of therapeutic range in order to avoid GI bleeding. 6. The patient will be on a full liquid diet for 3-4 days and soft diet 3-4 days to avoid any delayed bleeding from the polypectomy site. 7. We will check his CBC in the morning. 8. The patient will benefit from Reglan. We will give him a trial of 5 mg p.o. q.8 hours and hold for side effects like tardive dyskinesia. 9. We will give him Iron C b.i.d. and multivitamin once daily. 10. Further recommendations pending hospital course. cc: MD Nawaf Méndez MD Alexis R. Penot, MD Omar J. Sosa-Chirinos, MD MTDD
--- NOTE | 2016-09-09 14:49 | PROGRESS NOTE ---
DATE: 09/09/2016 SUBJECTIVE: This patient had today a colonoscopy and also an EGD, at this moment he is feeling much better. He has no abdominal complaint, Gastroenterology is following this patient closely. We will monitor. OBJECTIVE: Vital Signs: Temperature 97.9 degrees, pulse 57, respiratory rate 20, blood pressure 167/76, O2 saturation 100% on room air. HEENT: Head, normocephalic. No trauma. PERRLA. Neck: Supple. No JVD. No masses. Central trachea. Chest: Clear to auscultation. No wheezing. No rales. Abdomen: Soft, mild tenderness to palpation at the level of the periumbilical area, nondistended. Extremities: No edema. No clubbing. No cyanosis. Multiple hematoma likely secondary to IV lines. Neurological Examination: The patient is sleepy but arousable. Oriented x3. No focal deficits. LABORATORY: WBC 5.8, hemoglobin 9.6, hematocrit 29.2, platelets 190,000, PT 17.2, INR 1.59. Sodium 146, potassium 3.5, chloride 108, bicarbonate 25, BUN 17, creatinine 1.6, glucose 79, calcium 8. ASSESSMENT AND PLAN: 1. Lower gastrointestinal bleed. This patient just had an upper and lower endoscopy that showed evidence of hiatal hernia, a sliding type 4-5 cm, erosive gastritis in the stomach and body. Erosive duodenitis. Arteriovenous malformation noted measuring between 5-8 mm in the 3rd portion of the duodenum. Distended small bowel up to 110 cm from the anus, polyp found in the rectum at 15 cm which was 1 cm to 1.2 cm. This was removed with snare cautery polypectomy completely. Internal hemorrhoid. 2. Atrial fibrillation. Continue with amiodarone and beta susana, we used FFP and vitamin K yesterday to decrease the INR, but today we will restart is warfarin, I will restart this patient with a low dose of warfarin to try to reach an INR of 2, to avoid more serious bleeding complication. 3. History of colon cancer status post colectomy. Aware. 4. Hypertension. Stable. Continue with the same management. 5. Hyperlipidemia. Continue with the same management. 6. Type 2 diabetes. Continue with the same treatment. cc: Nick Morel MD
[2016-09-09] MEDS: CORDARONE PO SCH (14:53)
[2016-09-09] MEDS: MIRALAX PO SCH (14:53)
[2016-09-09] MEDS: TOPROL XL PO SCH ×2 (14:54→20:34)
[2016-09-09] MEDS: CENTRUM SILVER PO SCH (14:54)
[2016-09-09] MEDS: ICAR-C PO SCH ×2 (14:54→20:35)
[2016-09-09] MEDS: LEVAQUIN 750 MG/D5W 750 MG/150 ML IVPB IV SCH (16:15)
--- NOTE | 2016-09-09 17:03 | PROGRESS NOTE ---
DATE: 09/09/2016 SUBJECTIVE: Patient relates feeling much better. He denies any chest discomfort or dyspnea on room air lying flat. He still has some cough, but this is improved. OBJECTIVE: Vital Signs: Blood pressure 167/76, heart rate 57, oxygen saturation 100% on room air. Neck: There is no significant jugular venous distention. Chest: Clear to auscultation. Cardiac: Reveals a regular rate and rhythm without appreciable murmur or gallop. There is no evidence of peripheral edema. IMPRESSION: 1. Recent acute bronchitis, improving. 2. Recent lower gastrointestinal bleed. 3. Atherosclerotic coronary disease. 4. Previous coronary bypass grafting. 5. Status post aortic valve replacement for aortic stenosis in 2011. 6. Paroxysmal atrial fibrillation. 7. Hypertension. 8. Type 2 diabetes mellitus. 9. Chronic kidney disease stage 4. RECOMMENDATIONS: 1. Continue amiodarone and low-dose beta susana. 2. Agree with resuming anticoagulation once gastrointestinal situation permits. 3. Continue to manage paroxysmal atrial fibrillation with amiodarone, beta susana and long-term anticoagulation. 4. We will see further on an as needed basis. cc: Michel Hatfield MD
[2016-09-09] MEDS: REGLAN PO SCH ×2 (19:21→20:35)
[2016-09-09] MEDS: CARAFATE PO SCH ×2 (19:21→20:34)
[2016-09-09] MEDS: PRAVACHOL PO SCH (20:35)
[2016-09-09] MEDS ORDERED: COUMADIN PO SCH (21:00)
[2016-09-10] MEDS: FLAGYL 500 MG/NS 500 MG/100 ML IVPB IV SCH ×2 (05:15→09:33)
[2016-09-10] MEDS: REGLAN PO SCH ×2 (05:15→11:58)
[2016-09-10] MEDS: CARAFATE PO SCH ×2 (05:16→09:31)
[2016-09-10 07:41] LABS: MANUAL DIFF NEEDED? NO
[2016-09-10 07:45] LABS: BASO% 0.5 % (0.0-0.8); EOS# 0.11 X1000 (0.0-0.7); EOS% 1.9 % (0.0-10.0); HEMATOCRIT 27.6 % (42.0-52.0); LYMPH# 1.44 X1000 (1.2-3.4); LYMPH% 25.5 % (20.5-51.1); MCH 29.2 PG (27-31); MCHC 32.6 g/dL (33-37); MCV 89.6 FL (81-99); MONO# 0.66 X1000 (0.11-0.59); MONO% 11.7 % (1.7-9.3); MPV 9.9 FL (7.4-10.4); NEUT% 60.4 % (42.2-75.2); PLT 168 X1000 (130-400); RBC 3.08 XMIL (4.7-6.1)
[2016-09-10] MEDS: DILAUDID IV PRN ×3 (07:45→17:41)
[2016-09-10 07:57] VITALS: BP 149/66
[2016-09-10 08:03] LABS: INR 1.2; PROTIME 12.7 Seconds (9.2-11.7)
[2016-09-10 08:16] LABS: CALCIUM 7.4 mg/dL (8.8-10.2); POTASSIUM 3.3 mmol/L (3.5-5.1)
[2016-09-10] MEDS: MIRALAX PO SCH (09:31)
[2016-09-10] MEDS: TOPROL XL PO SCH (09:31)
[2016-09-10] MEDS: CENTRUM SILVER PO SCH (09:31)
[2016-09-10] MEDS: CORDARONE PO SCH (09:31)
[2016-09-10] MEDS: ICAR-C PO SCH (09:32)
[2016-09-10] MEDS: NS 1,000 ML IV SCH (11:52)
[2016-09-10] MEDS: LEVAQUIN 750 MG/D5W 750 MG/150 ML IVPB IV SCH (11:57)
[2016-09-10] MEDS: PEPCID IV SCH (11:58)
--- NOTE | 2016-09-11 14:32 | DISCHARGE SUMMARY ---
ADMISSION DATE: 09/06/2016 DISCHARGE DATE: 09/10/2016 ADMISSION DIAGNOSES: 1. Lower GI bleed. 2. Possible bowel obstruction. 3. Atrial fibrillation number. 4. History of aortic valve replacement. DISCHARGE DIAGNOSES: 1. Lower GI bleed. 2. Atrial fibrillation. 3. History of colon cancer. 4. Hypertension. 5. Hyperlipidemia. 6. Type 2 diabetes. CONSULTATIONS: Dr. Johnson and Dr. Hatfield. DIAGNOSTIC PROCEDURES AND FINDINGS: Chest x-ray done on 09/06/2016 shows small left pleural effusion. Abdomen and pelvis CT done on 09/06/2016 shows possibility of enteritis cannot be excluded, cystic lesion in the pancreatic head which has increased slightly in size since 12/12/2015, minimal ascites, chronic left pleural effusion. Colonoscopy done on 09/09/2016 shows erosive gastritis, hiatal hernia, erosive duodenitis, AVM noted measuring about 5-8 mm in the 3rd portion of the duodenum. Distended small bowel up to 110 cm from the anus, polyp in the rectum. HOSPITAL COURSE: This is a 75-year-old male with a history of gastrointestinal bleeding and colon cancer who came to our facility with bright red blood per stool, diarrhea and cramping in the abdomen that started that 2 days prior to admission. He became dizzy with weakness, fever and chills and came to the ER. In the ER he had abdomen and pelvis CT done which showed questionable bowel obstruction but could not rule out enteritis. He was admitted to the floor. We consulted Dr. Johnson. He also has a history of atrial fibrillation and is on Coumadin which we stopped and consulted Cardiology for further recommendations. Ultimately, the patient had an endoscopy on 09/09/2016 which did show fairly severe erosive gastritis and duodenitis. There was also an AVM which was very difficult to be cauterized by GI. They recommended he go to [place] for argon plasma laser therapy. Otherwise with antibiotics the patient's condition improved and he is feeling better. His cardiac status was stable throughout his entire stay and he is now stable for discharge home. MEDICATIONS: Amiodarone 100 mg daily. Aspirin 81 mg daily, do not resume until 1 week after discharge. Bentyl 20 mg b.i.d. Icar C one b.i.d. Metformin 500 mg b.i.d. Reglan 5 mg p.o. q.8. Toprol-XL 12.5 mg b.i.d. Multivitamin 1 daily. Zuplenz 8 mg p.o. every 8 hours. Protonix 40 mg daily. MiraLAX 17 g daily. Pravachol 20 mg p.o. at bedtime. Carafate 1 g p.o. q.6. Flomax 0.4 mg p.o. daily. Coumadin 2 mg p.o. at bedtime. DISCHARGE LABS: WBC 5.65, hemoglobin 9, hematocrit 27.6, platelet count 168,000. INR 1.2. Sodium 145, potassium 3.3, chloride 108, CO2 22, anion gap 15, BUN 12, creatinine 1.4, glucose 7.4. DISCHARGE DIET: Resume diabetic diet as tolerated. DISCHARGE ACTIVITY: Resume activity as tolerated. DISPOSITION AND DISCHARGE INSTRUCTIONS: Patient is discharged home to self-care. He is to follow up with Dr. Kaye, his PCP within a month and Dr. Johnson as directed. He is to return to the ER or call 911 for any worsening complaints, concerns. All questions have been answered. Discharge time greater than 35 minutes. Dictated by JAIRON Kelley for Nick Morel MD cc: JAIRON Kelley MD Stephen A. Branning, MD Amit Arora, MD Babu Kantamneni, MD William D. Denney, MD
== END 2016-09-10 18:18 | disposition home or self-care (01) ==
LOC: ED 15:57 → EDIPHOLD 23:55 → SUATTDRO 23:55 → 3N 09-07 15:46
PROVIDERS: ATTEND Internal Medicine

== ENCOUNTER 2016-10-25 16:06 | Inpatient (IN) ==
[2016-10-25 16:51] LABS: MANUAL DIFF NEEDED? NO
--- NOTE | 2016-10-25 17:13 | PROVIDER DOCUMENTATION ---
This chart was entered by Annika Dolan Scribe, acting as scribe for Tyler Ivan MD. HPI-General Adult - General Chief Complaint: Abnormal Lab[s] Stated Complaint: ABNORMAL LAB{S} Time Seen by Provider: 10/25/16 16:47 Source: patient Allergies/Adverse Reactions: Patient Allergies Allergy/AdvReac Type Severity Reaction Status Date / Time Iodinated Contrast- Oral and Allergy Severe RASH Verified 09/06/16 23:43 IV Dye morphine Allergy ITCHING Verified 09/06/16 23:43 Penicillins Allergy RASH Verified 09/06/16 23:43 Home Medications: Home Medication List Medication Instructions Recorded Confirmed Last Taken Type Amiodarone [Cordarone] 100 mg PO QAM 03/01/14 09/06/16 09/05/16 History PRAVAstatin [Pravachol] 20 mg PO QHS 03/01/14 09/06/16 09/05/16 History Dicyclomine HCl [Bentyl] 20 mg PO BID 12/22/14 09/06/16 09/05/16 History Metformin [Glucophage] 500 mg PO BID CC 12/06/15 09/06/16 09/05/16 History Ondansetron [Zuplenz] 8 mg PO Q8H 09/06/16 09/06/16 09/05/16 History Pantoprazole [Protonix] 40 mg PO DAILY 09/06/16 09/06/16 09/05/16 History Tamsulosin [Flomax] 0.4 mg PO DAILY 09/06/16 09/06/16 09/05/16 History Amiodarone [Cordarone] 100 mg PO DAILY tablet 09/10/16 Unknown Rx Aspirin 1 tab PO QAM #0 09/10/16 09/06/16 09/05/16 Rx Iron Carbonyl/Ascorbic Acid 1 each PO BID #100 tablet 09/10/16 Unknown Rx [Icar-C] Metoclopramide [Reglan] 5 mg PO Q8H #60 tablet 09/10/16 Unknown Rx Metoprolol Succinate E.r. [Toprol 12.5 mg PO BID #120 tablet 09/10/16 Unknown Rx Xl] Multivitamins/Minerals [Centrum 1 each PO DAILY tablet 09/10/16 Unknown Rx Silver] Polyethylene Glycol 3350 [Miralax] 17 gm PO DAILY #30 powder, packet 09/10/16 Unknown Rx Sucralfate [Carafate] 1 gm PO Q6H #120 tablet 09/10/16 Unknown Rx Warfarin [Coumadin] 2 mg PO QHS #120 tablet 09/10/16 Unknown Rx - History of Present Illness -Gen Adult Nature of Presenting Problems: 75 year old M presents to the ED with a cc of low hemaglobin. PT was sent over from his PCP. PT was seen over 1 month ago in [facility] and admitted. PT had a colonoscopy and EGD. PT has an appointment at [facility] on 11/10 with the GI doctor. Pt had labs drawn Tuesday and was called today and told to come to the ED. Location of Pain/Injury: reports: none Pain Radiation: reports: no radiation Quality of Pain: reports: none Severity: reports: mild Onset/Duration: reports: 2 days ago Timing: reports: still present Modifying Factors: improves with: nothing Similar Symptoms Previously?: No Recently seen or treated by another doctor?: No Review of Systems - Adult - REVIEW OF SYSTEMS - ADULT Constitutional: denies: chills, fever Eyes: reports: no symptoms reported Ears, Nose, Mouth & Throat: reports: no symptoms reported Cardiovascular: denies: chest pain, palpitations Respiratory: denies: cough, shortness of breath Gastrointestinal: denies: nausea, vomiting Genitourinary: denies: dysuria, hematuria Musculoskeletal: denies: bone pain, muscle aches, muscle weakness Integumentary: denies: skin sores/ulcer, skin thickening Neurological: reports: no symptoms reported Psychiatric: reports: no symptoms reported Endocrine: reports: no symptoms reported Hematologic/Lymphatic: reports: no symptoms reported Allergic/Immunologic: reports: no symptoms reported All Other Systems: Reviewed and Negative Past History - Adult - PAST MEDICAL HISTORY-ADULT Review of Records: reports: Nursing Assessment Review, Medications Reviewed Major Childhood Illnesses: reports: denies history Cardiovascular: reports: A-Fib, CAD, CHF, HTN, heart valve problem, hyperlipidemia, other (aortic valve) Respiratory: reports: asthma, COPD, sleep apnea Gastrointestinal: reports: cancer (colon), colitis, GERD, GI bleed Obstetrical/Gynecological: reports: denies history Genitourinary: reports: kidney disease Musculoskeletal: reports: denies history Neurological: reports: TIA Endocrine/Immune: reports: Diabetes Other Conditions: reports: denies history - PRIOR SURGERIES/PROCEDURES Surgical/Procedure History: reports: CABG, cholecystectomy, hernia repair, other (lumbar surgery; jaw surgery) - IMMUNIZATION STATUS Childhood Immunizations: See Nurse Assessment Flu Vaccine: See Nurse Assessment - FAMILY HISTORY Family History: CAD over 55 yo - SOCIAL HISTORY Smoking: quit greater than 1 year Substance Use: none/never Alcohol Use Frequency: never Physical Exam-General - PHYSICAL EXAM-ADULT Initial Vital Signs Reviewed: Yes - CONSTITUTIONAL General Appearance: appears well, alert, no apparent distress - EYES Eyes: pale conjunctivae - RESPIRATORY Respiratory: chest non-tender, lungs clear, normal breath sounds - CARDIOVASCULAR Cardiovascular: normal peripheral pulses, regular rate, rhythm, no edema - GASTROINTESTINAL (ABDOMEN) Abdominal Exam: normal bowel sounds, non tender, soft - SKIN Integumentary: normal color, normal turgor, warm/dry - PSYCHIATRIC Psych/Mental Status: normal mood/affect, normal thought content, normal thought process, oriented x 3 Progress - PLAN OF CARE/RESULTS Progress/Plan/Lab Results: Vital Signs - 8 hr 10/25/16 16:10 Temperature 98 F Pulse Rate 73 Respiratory Rate 18 Blood Pressure 120/64 O2 Sat by Pulse Oximetry 99 Orders Category Date Time Status CBC WITH DIFF [HEME] Stat Lab 10/25/16 16:30 Ordered COMPREHENSIVE METABOLIC PANEL [CHEM] Stat Lab 10/25/16 16:30 Ordered PROTIME WITH INR PL [COAG] Stat Lab 10/25/16 16:30 Ordered Result Diagrams: 10/25/16 16:40 10/25/16 16:40 - CONSULTS/PCP/HOSPITALIST Notification #1 *Consult/PCP/Hospitalist*: Dr. Farrell Time Discussed: 17:55 Consult Disposition: Will see in ED, Admit Departure - Departure Date of Disposition Decision: 10/25/16 Time of Disposition Decision: 17:54 DIAGNOSIS: Anemia, Lower GI bleed Disposition: ADMITTED INPATIENT 09 Certified Medical Emergency: Emergent Condition: Stable Referrals and Follow-Ups: Nawaf Kaye MD [Primary Care Provider] - - Critical Care Note This patient required my direct & personal management of CC.: No Attestation - Physician/ YASMIN Attestation Patient care was provided by Advanced Practice Provider:: No The physician spent face to face time with patient:: Yes Advanced Practice Provider documentation review:: Supervising physician onsite and consulted in the evaluation and care of this patient. The physician did have a face to face encounter with the patient. This chart was documented by the indicated scribe, (Annika Dolan Scribe) and accurately reflects the services I performed and decisions made by me, Tyler Ivan MD, as attested by the provider's signature.
[2016-10-25 17:14] LABS: BASO% 0.7 % (0.0-0.8); EOS# 0.13 X1000 (0.0-0.7); EOS% 2.2 % (0.0-10.0); HEMATOCRIT 23.3 % (42.0-52.0); HEMOGLOBIN 7.4 g/dL (14.0-18.0); IMM GRAN# 0.02 X1000 (0.0-0.04); IMM GRAN% 0.3 % (0.0-0.5); INR 2.98 (0.86-1.15); LYMPH# 1.37 X1000 (1.2-3.4); LYMPH% 23.1 % (20.5-51.1); MCH 28.6 PG (27-31); MCHC 31.8 g/dL (33-37); MONO# 0.45 X1000 (0.11-0.59); MONO% 7.6 % (1.7-9.3); MPV 9.5 FL (7.4-10.4); NEUT% 66.1 % (42.2-75.2); PLT 323 X1000 (130-400); PROTIME 33.3 Seconds (12.1-15.5); RBC 2.59 XMIL (4.7-6.1)
[2016-10-25 17:19] LABS: ALBUMIN 3.8 g/dL (3.5-5.0); CALCIUM 8.7 mg/dL (8.8-10.2); POTASSIUM 3.4 mmol/L (3.5-5.1); TOTAL BILIRUBIN 0.3 mg/dL (0.20-1.00); TOTAL PROTEIN 6.6 g/dL (6.3-8.3)
--- NOTE | 2016-10-25 17:36 | Diag Imaging Result Doc PS360 ---
FLAT/UPRIGHT ABD/1 VIEW CHEST - 10/25/2016 INDICATION: Abd pain TECHNIQUE: Three views COMPARISON: 09/06/2016, 02/03/2016 FINDINGS: Stable CABG changes. Heart size remains top normal. Stable small left pleural effusion. There are numerous severely gaseous distended loops of bowel mostly colon throughout the abdomen and pelvis. This is very similar to 02/03/2016. Stable surgical clips throughout the abdomen and pelvis. No definite free air. IMPRESSION: Abnormal but nonspecific bowel gas pattern. No change from prior exams. Electronically signed by Angus Driscoll 10/25/2016 5:34 PM
[2016-10-25] MEDS ORDERED: NS 1,000 ML IV ONE (17:53)
--- NOTE | 2016-10-26 08:27 | HISTORY AND PHYSICAL ---
CHIEF COMPLAINT: Anemia. HISTORY OF PRESENT ILLNESS: The patient is a 75-year-old male, who is a patient of Dr. Ortez, who presents to the emergency department secondary to being told that he was anemic. He has a long history of anemia. In fact, he has had multiple previous workups and is planned further intervention at the end of October. He was in Dr. Kaye's office for a routine followup. He notes that he was tired, fatigued. He denies any recent bright red blood per rectum. He states that he has been having dark stools, but he has also been taking iron. He was unsure he was bleeding. His hemoglobin and hematocrit were checked and were low, and therefore, he was sent to the emergency department. ALLERGIES: Penicillin causing a rash; IVP dye, rash; morphine, itching. MEDICATIONS: Amiodarone 100, Pravachol 20 every night at bedtime, Bentyl 20 b.i.d., Glucophage 500 b.i.d., Zofran p.r.n., Protonix 40, aspirin, Icar-C, Reglan, Toprol-XL 12.5 twice a day, Carafate, Coumadin 2 mg. REVIEW OF SYSTEMS: As noted above. Denies any chest pains or palpitations. Denies any fevers or chills. He denies any knowledge of recent GI bleeding. He denies any hematemesis, hematochezia. He states he has had dark stool, but he attributes that more to his iron and medications. He has been fatigued, occasionally lightheaded, but denies any palpitations. He denies any syncopal episodes. PAST MEDICAL AND SURGICAL HISTORY: Atrial fibrillation, coronary artery disease, congestive heart failure, hypertension, hyperlipidemia, asthma, COPD, sleep apnea, colon cancer, colitis, chronic GI bleed of currently undetermined origin, diabetes, history of TIAs. He has had a cholecystectomy, hernia repair, and CABG in the past. FAMILY HISTORY: Positive for coronary artery disease. SOCIAL HISTORY: The patient lives at home. He stopped smoking greater than 1 year ago. He does not drink alcohol. PRIMARY CARE PROVIDER: Dr. Kaye is his primary care provider. PHYSICAL EXAMINATION: VITAL SIGNS: Temperature 98, pulse 72, respiratory rate 18, blood pressure 120/64, saturation 99% on room air. GENERAL: The patient is awake, alert, oriented. He is pleasant to talk with. NECK: Supple. CARDIOVASCULAR: Regular rate. CHEST: Relatively clear. ABDOMEN: Soft. EXTREMITIES: Moves all extremities. NEUROLOGIC: No focal changes. SKIN: Warm and dry. No rashes. LABORATORY DATA: Labs were reviewed. Hemoglobin and hematocrit were 7.4 and 23, platelets 323,000, WBCs 5.9. Potassium 3.4, BUN 25, creatinine 2.3. ASSESSMENT: 1. Anemia secondary to lower gastrointestinal bleed. 2. Lower gastrointestinal bleed. 3. Known coronary artery disease. PLAN: We will admit the patient to the hospital. We will type and cross and transfuse. We will continue his Coumadin secondary to his aortic valve and his known coronary artery disease. We will continue to follow. He will follow up outpatient with GI for preplanned procedures. It appears he may be having a camera endoscopy. We will continue his home medications. Hopefully home in 1 to 2 days. cc: Vishal Farrell MD
[2016-10-26 08:40] LABS: MANUAL DIFF NEEDED? NO
[2016-10-26 08:55] LABS: BASO% 0.4 % (0.0-0.8); EOS# 0.12 X1000 (0.0-0.7); EOS% 1.7 % (0.0-10.0); HEMATOCRIT 21.1 % (42.0-52.0); HEMOGLOBIN 6.8 g/dL (14.0-18.0); IMM GRAN# 0.01 X1000 (0.0-0.04); IMM GRAN% 0.1 % (0.0-0.5); LYMPH# 1.07 X1000 (1.2-3.4); LYMPH% 15.3 % (20.5-51.1); MCH 29.2 PG (27-31); MCHC 32.2 g/dL (33-37); MCV 90.6 FL (81-99); MONO# 0.44 X1000 (0.11-0.59); MONO% 6.3 % (1.7-9.3); MPV 9.4 FL (7.4-10.4); NEUT% 76.2 % (42.2-75.2); PLT 296 X1000 (130-400); RBC 2.33 XMIL (4.7-6.1)
[2016-10-26] MEDS ORDERED: NS 500 ML IV SCH (11:20)
[2016-10-26] MEDS ORDERED: TYLENOL PO ONE (11:25)
[2016-10-26] MEDS ORDERED: BENADRYL PO ONE (11:25)
[2016-10-26] MEDS ORDERED: VITAMIN K SUBQ ONE (11:30)
[2016-10-26] MEDS ORDERED: LASIX IV SCH (11:45)
[2016-10-26] MEDS ORDERED: LASIX IV ONE (15:17)
[2016-10-26 19:46] VITALS: BP 170/75
[2016-10-27] MEDS ORDERED: LASIX IV SCH (03:00)
--- NOTE | 2016-11-11 00:39 | DISCHARGE SUMMARY ---
ADMISSION DATE: 10/25/2016 DISCHARGE DATE: 10/26/2016 DISCHARGE DIAGNOSES: 1. Anemia. 2. Lower gastrointestinal bleed. 3. Coronary artery disease. HISTORY AND HOSPITAL COURSE: The patient was admitted on the , and then transferred on the . Briefly, the patient presented with hemoglobin and hematocrit of 7 and 23. He had multiple evidences of GI bleed in the past. He was admitted for transfusion. He was given 2 units of blood. His last hemoglobin and hematocrit was 6 and 21, with an INR of 2.8. The patient had AVMs by report, per Dr. Ross, and he recommended an argon photocoagulation procedure, which could not be accomplished in the [facility]. He was given blood and ordered for FFP. I do not think he got FFP prior. He was transferred to [facility] for evaluation for argon photocoagulation after his coagulopathy improved. Further care per [facility] care team. cc: MD Nawaf Ruiz MD
== END 2016-10-26 20:30 | disposition short-term general hospital (02) ==
LOC: P.MEDSURG 16:06 → P.ED 16:06 → OBSVTOIN 18:22 → SUATTDRO 18:22 → P.MEDSURG 18:46
PROVIDERS: ATTEND Internal Medicine